=== PATIENT | female | born 1960 | race Caucasian/White ===

== ENCOUNTER 2020-01-04 13:49 | Inpatient (IN) ==
[2020-01-04 15:16] LABS: Hematocrit 46.3 % (35.3-44.9); Hemoglobin 14.3 g/dL (11.5-15.4); Mean Corpuscular HGB Conc 30.9 g/dL (31.6-35.5); Mean Corpuscular Hemoglobin 26.7 pg (28.0-33.3); Mean Corpuscular Volume 86.4 fL (83.0-100.0); Mean Platelet Volume 9.2 fL (9.4-12.4); Platelet Count 340 K/mcL (140-400); Red Blood Count 5.36 M/mcL (3.82-4.97); Red Cell Distribution Width 17.6 % (11.5-14.5)
[2020-01-04 15:39] LABS: BUN/Creatinine Ratio 15 (6-26); Blood Urea Nitrogen 7 mg/dL (6-20); Calcium 8.2 mg/dL (8.6-10.3); Carbon Dioxide 36 mEq/L (23-29); Chloride 80 mEq/L (98-107); Glucose 146 mg/dL (70-105); Osmolality,Calculated 255 (280-300); Potassium 3.5 mEq/L (3.5-5.1); Sodium 122 mEq/L (136-145); eGFR For African Americans > 60 (> 60); eGFR For Non-African Americans > 60 (> 60)
[2020-01-04 16:49] LABS: Bilirubin,Urine Negative (Negative); Blood,Urine Negative (Negative); Clarity,Urine Clear (Clear); Color,Urine Light-Yellow (Yellow); Glucose,Urine (UA) Normal (Normal); Ketones,Urine Negative (Negative); Leukocyte Esterase,Urine Negative (Negative); Nitrite,Urine Negative (Negative); Protein,Urine Negative (Neg-Trace); Specific Gravity,Urine 1.008 (1.010-1.025); Urobilinogen,Urine Normal (Normal)
[2020-01-04] MEDS ORDERED: *HR* Promethazine 25 MG/ML VIAL IVP PRN (18:08)
[2020-01-04] MEDS ORDERED: Acetaminophen 325 MG TABLET PO PRN (18:08)
[2020-01-04] MEDS ORDERED: Furosemide 20 MG/2 ML VIAL IVP ONE (18:41)
[2020-01-04 19:08] LABS: Magnesium 1.4 mg/dL (1.6-2.6)
[2020-01-04 19:09] LABS: Albumin 3.4 g/dL (3.5-5.7); Albumin/Globulin Ratio 1.1 (1.1-2.2); Bilirubin,Indirect 0.5 mg/dL (0.0-1.0); Bilirubin,Total 0.5 mg/dL (0.3-1.0); Globulin 3.1 g/dL (2.4-3.5); Total Protein 6.5 g/dL (6.4-8.9); Troponin I < 0.03 ng/mL (< 0.04)
[2020-01-04] MEDS ORDERED: Isovue-370 500 ML BOTTLE IVP ONE (22:03)
[2020-01-04] MEDS ORDERED: *HR* Dextrose 50 % in Water (Vial) 50 ML VIAL IVP PRN (22:06)
[2020-01-04] MEDS ORDERED: D5% in Water 1,000 ML IVC PRN (22:06)
[2020-01-04] MEDS ORDERED: Dextrose Gel 15 GM/37.5 ML TUBE PO PRN ×2 (22:06)
[2020-01-04] MEDS: predniSONE 20 MG TABLET PO SCH (22:41)
[2020-01-05] MEDS: Ipratropium/Albuterol Neb 3 ML IH SCH ×9 (00:23→23:35)
[2020-01-05 05:24] LABS: Hematocrit 46.5 % (35.3-44.9); Hemoglobin 13.9 g/dL (11.5-15.4); Mean Corpuscular HGB Conc 29.9 g/dL (31.6-35.5); Mean Corpuscular Volume 86.9 fL (83.0-100.0); Mean Platelet Volume 8.9 fL (9.4-12.4); Platelet Count 314 K/mcL (140-400); Red Blood Count 5.35 M/mcL (3.82-4.97); Red Cell Distribution Width 17.5 % (11.5-14.5)
[2020-01-05] MEDS: *HR* Enoxaparin 40 MG/0.4 ML SYRINGE SQ SCH (05:46)
[2020-01-05 05:52] LABS: BUN/Creatinine Ratio 11 (6-26); Blood Urea Nitrogen 5 mg/dL (6-20); Calcium 8.3 mg/dL (8.6-10.3); Carbon Dioxide 41 mEq/L (23-29); Chloride 79 mEq/L (98-107); Glucose 176 mg/dL (70-105); Osmolality,Calculated 258 (280-300); Potassium 3.9 mEq/L (3.5-5.1); Sodium 123 mEq/L (136-145); eGFR For African Americans > 60 (> 60); eGFR For Non-African Americans > 60 (> 60)
[2020-01-05 06:37] LABS: ABG Base Excess 13 mEq/L (-2 to 3); ABG HCO3 48 mEq/L (21-27); ABG Oxygen Saturation 88 % (95-98); ABG PCO2 111 mmHg (35-45); ABG PH 7.24 pH Units (7.32-7.45); ABG PO2 70 mmHg (85-104); ABG TCO2 > 50 mEq/L (20-26)
[2020-01-05] MEDS: Insulin LISPRO 300 UNITS/3 ML VIAL SQ SCH ×4 (07:56→21:14)
[2020-01-05] MEDS: predniSONE 20 MG TABLET PO SCH (08:02)
[2020-01-05] MEDS ORDERED: Furosemide 20 MG/2 ML VIAL IVP SCH (09:00)
[2020-01-05 11:17] LABS: ABG Base Excess 13 mEq/L (-2 to 3); ABG HCO3 45 mEq/L (21-27); ABG Oxygen Saturation 95 % (95-98); ABG PCO2 90 mmHg (35-45); ABG PH 7.31 pH Units (7.32-7.45); ABG PO2 90 mmHg (85-104); ABG TCO2 48 mEq/L (20-26)
[2020-01-05] MEDS ORDERED: Furosemide 20 MG/2 ML VIAL IVP ONE (14:06)
[2020-01-05] MEDS: Furosemide 20 MG/2 ML VIAL IVP SCH (16:06)
[2020-01-05 17:14] LABS: Thyroid Stimulating Hormone 0.451 mcIU/mL (0.340-5.600)
[2020-01-05] MEDS: Budesonide/Formoterol 160/4.5 1 PUFF INH IH SCH (19:58)
[2020-01-06] MEDS: Ipratropium/Albuterol Neb 3 ML IH SCH ×7 (03:10→23:39)
[2020-01-06] MEDS: *HR* Enoxaparin 40 MG/0.4 ML SYRINGE SQ SCH (05:24)
[2020-01-06 06:37] LABS: Basophils % 0.1 %; Eosinophils % 0.1 %; Hemoglobin 12.9 g/dL (11.5-15.4); Immature Granulocytes % 0.6 % (0-4); Lymphocytes # 1.2 K/mcL (0.6-4.6); Lymphocytes % 12.4 %; Mean Corpuscular Hemoglobin 26.4 pg (28.0-33.3); Mean Corpuscular Volume 87.9 fL (83.0-100.0); Mean Platelet Volume 9.7 fL (9.4-12.4); Monocytes # 0.8 K/mcL (0.0-1.3); Monocytes % 8.7 %; Neutrophils # 7.3 K/mcL (1.6-8.9); Nucleated Red Blood Cells 0.3 /100 WBC (0); Platelet Count 318 K/mcL (140-400); Red Blood Count 4.89 M/mcL (3.82-4.97); Red Cell Distribution Width 17.8 % (11.5-14.5); Segmented Neutrophils % 78.1 %; White Blood Count 9.3 K/mcL (4.3-11.1)
[2020-01-06 06:49] LABS: VBG HCO3 51 mEq/L (21-27); VBG PCO2 107 mmHg (41-51); VBG PH 7.28 pH Units (7.32-7.42); VBG PO2 201 mmHg (25-50)
[2020-01-06 07:11] LABS: BUN/Creatinine Ratio 22 (6-26); Blood Urea Nitrogen 9 mg/dL (6-20); Calcium 8.6 mg/dL (8.6-10.3); Carbon Dioxide > 45 mEq/L (23-29); Chloride 79 mEq/L (98-107); Glucose 112 mg/dL (70-105); Magnesium 1.8 mg/dL (1.6-2.6); Osmolality,Calculated 265 (280-300); Potassium 3.5 mEq/L (3.5-5.1); Sodium 128 mEq/L (136-145); eGFR For African Americans > 60 (> 60); eGFR For Non-African Americans > 60 (> 60)
[2020-01-06] MEDS: Budesonide/Formoterol 160/4.5 1 PUFF INH IH SCH ×2 (07:24→19:39)
[2020-01-06] MEDS: Insulin LISPRO 300 UNITS/3 ML VIAL SQ SCH ×5 (08:08→20:07)
[2020-01-06] MEDS: cefTRIAXone 1,000 MG in 0.9 % Sodium Chloride Mini Bag 100 ML IVPB SCH ×2 (08:21→08:30)
[2020-01-06] MEDS: predniSONE 20 MG TABLET PO SCH (08:21)
[2020-01-06] MEDS: Furosemide 20 MG/2 ML VIAL IVP SCH ×2 (08:21→16:33)
[2020-01-06] MEDS ORDERED: Azithromycin 250 MG TABLET PO ONE (09:00)
[2020-01-06] MEDS ORDERED: Ipratropium/Albuterol Neb 3 ML IH PRN (16:49)
[2020-01-07] MEDS: Ipratropium/Albuterol Neb 3 ML IH SCH ×6 (03:39→23:36)
[2020-01-07] MEDS: *HR* Enoxaparin 40 MG/0.4 ML SYRINGE SQ SCH (05:48)
[2020-01-07 06:10] LABS: VBG HCO3 51 mEq/L (21-27); VBG PCO2 87 mmHg (41-51); VBG PH 7.38 pH Units (7.32-7.42); VBG PO2 74 mmHg (25-50)
[2020-01-07 06:21] LABS: BUN/Creatinine Ratio 23 (6-26); Blood Urea Nitrogen 10 mg/dL (6-20); Calcium 8.8 mg/dL (8.6-10.3); Carbon Dioxide > 45 mEq/L (23-29); Chloride 79 mEq/L (98-107); Glucose 111 mg/dL (70-105); Magnesium 1.8 mg/dL (1.6-2.6); Osmolality,Calculated 270 (280-300); Potassium 3.7 mEq/L (3.5-5.1); Sodium 130 mEq/L (136-145); eGFR For African Americans > 60 (> 60); eGFR For Non-African Americans > 60 (> 60)
[2020-01-07] MEDS: Insulin LISPRO 300 UNITS/3 ML VIAL SQ SCH ×4 (07:20→21:18)
[2020-01-07] MEDS: Budesonide/Formoterol 160/4.5 1 PUFF INH IH SCH ×2 (07:29→19:38)
[2020-01-07] MEDS: Furosemide 20 MG/2 ML VIAL IVP SCH ×2 (07:33→16:37)
[2020-01-07] MEDS: cefTRIAXone 1,000 MG in 0.9 % Sodium Chloride Mini Bag 100 ML IVPB SCH (10:19)
[2020-01-07] MEDS: predniSONE 20 MG TABLET PO SCH (10:20)
[2020-01-07] MEDS: Azithromycin 250 MG TABLET PO SCH (10:20)
[2020-01-08 03:18] LABS: Basophils % 0.1 %; Eosinophils % 0.1 %; Hematocrit 42.1 % (35.3-44.9); Hemoglobin 12.3 g/dL (11.5-15.4); Immature Granulocytes % 0.4 % (0-4); Lymphocytes # 1.2 K/mcL (0.6-4.6); Lymphocytes % 15.4 %; Mean Corpuscular HGB Conc 29.2 g/dL (31.6-35.5); Mean Corpuscular Hemoglobin 25.6 pg (28.0-33.3); Mean Corpuscular Volume 87.7 fL (83.0-100.0); Mean Platelet Volume 8.9 fL (9.4-12.4); Monocytes # 0.6 K/mcL (0.0-1.3); Monocytes % 7.3 %; Platelet Count 263 K/mcL (140-400); Red Cell Distribution Width 18.2 % (11.5-14.5); Segmented Neutrophils % 76.7 %; White Blood Count 7.9 K/mcL (4.3-11.1)
[2020-01-08] MEDS: Ipratropium/Albuterol Neb 3 ML IH SCH ×6 (03:29→23:51)
[2020-01-08 03:40] LABS: BUN/Creatinine Ratio 32 (6-26); Blood Urea Nitrogen 12 mg/dL (6-20); Calcium 8.6 mg/dL (8.6-10.3); Carbon Dioxide > 45 mEq/L (23-29); Chloride 84 mEq/L (98-107); Glucose 128 mg/dL (70-105); Magnesium 1.9 mg/dL (1.6-2.6); Osmolality,Calculated 273 (280-300); Sodium 131 mEq/L (136-145); eGFR For African Americans > 60 (> 60); eGFR For Non-African Americans > 60 (> 60)
[2020-01-08 03:43] LABS: VBG HCO3 45 mEq/L (21-27); VBG PCO2 75 mmHg (41-51); VBG PH 7.38 pH Units (7.32-7.42); VBG PO2 167 mmHg (25-50)
[2020-01-08] MEDS: *HR* Enoxaparin 40 MG/0.4 ML SYRINGE SQ SCH (06:06)
[2020-01-08] MEDS: Insulin LISPRO 300 UNITS/3 ML VIAL SQ SCH ×4 (07:22→20:24)
[2020-01-08] MEDS: Budesonide/Formoterol 160/4.5 1 PUFF INH IH SCH ×2 (07:26→19:58)
[2020-01-08] MEDS: Azithromycin 250 MG TABLET PO SCH (07:57)
[2020-01-08] MEDS: predniSONE 20 MG TABLET PO SCH (07:57)
[2020-01-08] MEDS: Furosemide 40 MG/4 ML VIAL IVP SCH (07:57)
[2020-01-08] MEDS: cefTRIAXone 1,000 MG in 0.9 % Sodium Chloride Mini Bag 100 ML IVPB SCH (07:58)
[2020-01-09] MEDS: Ipratropium/Albuterol Neb 3 ML IH SCH ×5 (03:12→19:53)
[2020-01-09 03:17] LABS: VBG HCO3 46 mEq/L (21-27); VBG PCO2 79 mmHg (41-51); VBG PH 7.37 pH Units (7.32-7.42); VBG PO2 223 mmHg (25-50)
[2020-01-09 03:40] LABS: BUN/Creatinine Ratio 41 (6-26); Blood Urea Nitrogen 20 mg/dL (6-20); Carbon Dioxide 44 mEq/L (23-29); Chloride 89 mEq/L (98-107); Glucose 103 mg/dL (70-105); Magnesium 2.1 mg/dL (1.6-2.6); Osmolality,Calculated 281 (280-300); Potassium 4.2 mEq/L (3.5-5.1); Sodium 134 mEq/L (136-145); eGFR For African Americans > 60 (> 60); eGFR For Non-African Americans > 60 (> 60)
[2020-01-09] MEDS: *HR* Enoxaparin 40 MG/0.4 ML SYRINGE SQ SCH (05:54)
[2020-01-09] MEDS: Budesonide/Formoterol 160/4.5 1 PUFF INH IH SCH ×2 (07:34→19:53)
[2020-01-09] MEDS: Insulin LISPRO 300 UNITS/3 ML VIAL SQ SCH ×4 (07:56→20:22)
[2020-01-09] MEDS: cefTRIAXone 1,000 MG in 0.9 % Sodium Chloride Mini Bag 100 ML IVPB SCH (08:05)
[2020-01-09] MEDS: Furosemide 40 MG/4 ML VIAL IVP SCH (08:05)
[2020-01-09] MEDS: Azithromycin 250 MG TABLET PO SCH (08:06)
[2020-01-09] MEDS: predniSONE 20 MG TABLET PO SCH (08:06)
[2020-01-09] MEDS: Insulin DETEMIR 100 UNIT/ML X5UNITS SQ SCH (13:15)
[2020-01-10] MEDS: Ipratropium/Albuterol Neb 3 ML IH SCH ×7 (00:01→23:25)
[2020-01-10 00:51] LABS: VBG HCO3 40 mEq/L (21-27); VBG PCO2 61 mmHg (41-51); VBG PH 7.42 pH Units (7.32-7.42); VBG PO2 129 mmHg (25-50)
[2020-01-10 02:16] LABS: BUN/Creatinine Ratio 53 (6-26); Blood Urea Nitrogen 23 mg/dL (6-20); Calcium 8.8 mg/dL (8.6-10.3); Carbon Dioxide 40 mEq/L (23-29); Chloride 90 mEq/L (98-107); Glucose 102 mg/dL (70-105); Osmolality,Calculated 282 (280-300); Potassium 4.4 mEq/L (3.5-5.1); Sodium 134 mEq/L (136-145); eGFR For African Americans > 60 (> 60); eGFR For Non-African Americans > 60 (> 60)
[2020-01-10] MEDS: *HR* Enoxaparin 40 MG/0.4 ML SYRINGE SQ SCH (06:17)
[2020-01-10 07:04] LABS: Estimated Average Glucose 217 mg/dl; Hemoglobin A1C 9.2 %
[2020-01-10] MEDS: Insulin LISPRO 300 UNITS/3 ML VIAL SQ SCH ×4 (07:41→20:47)
[2020-01-10] MEDS: Furosemide 40 MG/4 ML VIAL IVP SCH (07:45)
[2020-01-10] MEDS: predniSONE 20 MG TABLET PO SCH (07:46)
[2020-01-10] MEDS: Azithromycin 250 MG TABLET PO SCH (07:46)
[2020-01-10] MEDS: Insulin DETEMIR 100 UNIT/ML X5UNITS SQ SCH (07:46)
[2020-01-10] MEDS: cefTRIAXone 1,000 MG in 0.9 % Sodium Chloride Mini Bag 100 ML IVPB SCH (07:47)
[2020-01-10] MEDS: Budesonide/Formoterol 160/4.5 1 PUFF INH IH SCH ×2 (07:53→20:07)
[2020-01-10] MEDS ORDERED: Insulin DETEMIR 100 UNIT/ML X5UNITS SQ SCH (21:00)
[2020-01-11 00:51] LABS: Basophils % 0.1 %; Eosinophils % 0.3 %; Hematocrit 43.2 % (35.3-44.9); Immature Granulocytes % 0.6 % (0-4); Lymphocytes # 1.8 K/mcL (0.6-4.6); Lymphocytes % 25.3 %; Mean Corpuscular HGB Conc 30.1 g/dL (31.6-35.5); Mean Corpuscular Hemoglobin 25.3 pg (28.0-33.3); Mean Platelet Volume 8.9 fL (9.4-12.4); Monocytes # 0.7 K/mcL (0.0-1.3); Monocytes % 9.3 %; Neutrophils # 4.5 K/mcL (1.6-8.9); Platelet Count 261 K/mcL (140-400); Red Blood Count 5.14 M/mcL (3.82-4.97); Red Cell Distribution Width 18.6 % (11.5-14.5); Segmented Neutrophils % 64.4 %
[2020-01-11 01:10] LABS: BUN/Creatinine Ratio 49 (6-26); Blood Urea Nitrogen 27 mg/dL (6-20); Calcium 9.4 mg/dL (8.6-10.3); Carbon Dioxide 39 mEq/L (23-29); Chloride 87 mEq/L (98-107); Glucose 161 mg/dL (70-105); Osmolality,Calculated 279 (280-300); Potassium 4.6 mEq/L (3.5-5.1); Sodium 130 mEq/L (136-145); eGFR For African Americans > 60 (> 60); eGFR For Non-African Americans > 60 (> 60)
[2020-01-11] MEDS: Ipratropium/Albuterol Neb 3 ML IH SCH ×6 (03:35→22:54)
[2020-01-11 04:35] LABS: ABG Base Excess 12 mEq/L (-2 to 3); ABG HCO3 40 mEq/L (21-27); ABG Oxygen Saturation 88 % (95-98); ABG PCO2 64 mmHg (35-45); ABG PH 7.41 pH Units (7.32-7.45); ABG PO2 57 mmHg (85-104); ABG TCO2 42 mEq/L (20-26)
[2020-01-11] MEDS: *HR* Enoxaparin 40 MG/0.4 ML SYRINGE SQ SCH (05:22)
[2020-01-11] MEDS: Insulin LISPRO 300 UNITS/3 ML VIAL SQ SCH ×4 (07:17→22:34)
[2020-01-11] MEDS: Budesonide/Formoterol 160/4.5 1 PUFF INH IH SCH ×2 (07:29→20:25)
[2020-01-11] MEDS: Furosemide 40 MG/4 ML VIAL IVP SCH (07:39)
[2020-01-11] MEDS: predniSONE 20 MG TABLET PO SCH (07:40)
[2020-01-11] MEDS: cefTRIAXone 1,000 MG in 0.9 % Sodium Chloride Mini Bag 100 ML IVPB SCH (07:40)
[2020-01-11] MEDS: Azithromycin 250 MG TABLET PO SCH (07:40)
[2020-01-11] MEDS: Insulin DETEMIR 100 UNIT/ML X5UNITS SQ SCH (07:55)
[2020-01-12 00:46] LABS: Basophils % 0.1 %; Eosinophils % 0.4 %; Hematocrit 43.4 % (35.3-44.9); Hemoglobin 13.4 g/dL (11.5-15.4); Immature Granulocytes % 0.4 % (0-4); Lymphocytes # 1.7 K/mcL (0.6-4.6); Lymphocytes % 22.4 %; Mean Corpuscular HGB Conc 30.9 g/dL (31.6-35.5); Mean Corpuscular Hemoglobin 26.1 pg (28.0-33.3); Mean Corpuscular Volume 84.6 fL (83.0-100.0); Mean Platelet Volume 9.4 fL (9.4-12.4); Monocytes # 0.7 K/mcL (0.0-1.3); Monocytes % 8.8 %; Neutrophils # 5.2 K/mcL (1.6-8.9); Platelet Count 252 K/mcL (140-400); Red Blood Count 5.13 M/mcL (3.82-4.97); Red Cell Distribution Width 19.1 % (11.5-14.5); Segmented Neutrophils % 67.9 %; White Blood Count 7.6 K/mcL (4.3-11.1)
[2020-01-12 00:51] LABS: VBG HCO3 36 mEq/L (21-27); VBG PCO2 52 mmHg (41-51); VBG PH 7.45 pH Units (7.32-7.42); VBG PO2 150 mmHg (25-50)
[2020-01-12 01:20] LABS: BUN/Creatinine Ratio 60 (6-26); Blood Urea Nitrogen 30 mg/dL (6-20); Carbon Dioxide 34 mEq/L (23-29); Chloride 90 mEq/L (98-107); Glucose 141 mg/dL (70-105); Osmolality,Calculated 281 (280-300); Potassium 4.2 mEq/L (3.5-5.1); Sodium 131 mEq/L (136-145); eGFR For African Americans > 60 (> 60); eGFR For Non-African Americans > 60 (> 60)
[2020-01-12] MEDS: valACYclovir 500 MG TABLET PO SCH ×2 (01:35→08:26)
[2020-01-12] MEDS: Ipratropium/Albuterol Neb 3 ML IH SCH ×3 (04:21→11:00)
[2020-01-12] MEDS: *HR* Enoxaparin 40 MG/0.4 ML SYRINGE SQ SCH (06:49)
[2020-01-12] MEDS: Budesonide/Formoterol 160/4.5 1 PUFF INH IH SCH (07:12)
[2020-01-12] MEDS: Insulin LISPRO 300 UNITS/3 ML VIAL SQ SCH ×2 (07:41→11:32)
[2020-01-12] MEDS: predniSONE 20 MG TABLET PO SCH (08:25)
[2020-01-12] MEDS: Furosemide 40 MG/4 ML VIAL IVP SCH (08:26)
[2020-01-12] MEDS: Insulin DETEMIR 100 UNIT/ML X5UNITS SQ SCH (08:26)
[2020-01-12] MEDS: cefTRIAXone 1,000 MG in 0.9 % Sodium Chloride Mini Bag 100 ML IVPB SCH (08:27)
[2020-01-12 10:57] VITALS: BP 100/65
== END 2020-01-12 13:38 | disposition home or self-care (01) | DRG 133 ==
LOC: EMEROOARM 13:49 → 2NNU 13:49 → SUATTDRO 18:36 → 2NNU 19:26 → SUATTDRO 01-05 12:22 → 2ANU 01-11 15:48
PROVIDERS: ADMIT Pharmacist; ATTEND Pharmacist